=== PATIENT | female | born 1985 | race Caucasian/White ===

== ENCOUNTER 2016-03-11 19:15 | Emergency (ER) | payer OTHER ==
[~2016-03-11] VITALS: Ht 170.2 cm; Wt 61.4 kg
[~2016-03-11 19:15] MED LIST: CEPHALEXIN500 M1 PO; CIPRO 500MG TA500 MG PO; EPI EZ PEN1 MG/ML IM; MEDROL 4MG DOSPA4 MG PO; NO HOME MEDICATIONS; PREDNISONE20 MG PO
[2016-03-11 19:20] VITALS: TEMP 98.6
[2016-03-11] MEDS ORDERED: EPIPEN 2-PAK1 MG/ML IM (21:18)
[2016-03-11] MEDS ORDERED: PREDNISONE20 MG PO (21:18)
[2016-03-11] MEDS ORDERED: PEPCID 20MG TAB20 MG PO (21:18)
[2016-03-11 21:30] VITALS: BP 115/75; PULSE 90
== END 2016-03-11 21:40 | disposition home or self-care (01) ==
LOC: COL.ER 19:15
DX: T78.1XXA Other adverse food reactions, not elsewhere classified, initial encounter (principal); J98.01 Acute bronchospasm; X58.XXXA Exposure to other specified factors, initial encounter
CPT/HCPCS: J0171; J1200; J2930